=== PATIENT | female | born 1950 | race Caucasian/White ===

== ENCOUNTER 2020-10-30 11:37 | Outpatient (REF) | payer MEDICARE, SELFPAY ==
--- NOTE | 2020-10-30 | MM_ITS ---
EXAMINATION: MM SCREENING DIGITAL BREAST TOMOSYNTHESIS, BILATERAL CLINICAL INFORMATION: Screening. Asymptomatic. The lifetime risk of breast cancer based on the Tyrer-Cuzick Model is 6%. COMPARISON: Mammography: 08/05/2019, 08/02/2018, 07/31/2017 TECHNIQUE: Digital breast tomosynthesis is performed in both the craniocaudal and mediolateral oblique views along with computer-aided detection (CAD). Synthesized 2D images are generated from the tomosynthesis. FINDINGS: There are scattered areas of fibroglandular density (ACR BI-RADS breast composition Category b). There are no significant masses, abnormal calcifications, or other abnormalities. Parenchymal pattern is similar to prior studies. No significant changes. MM/MM tomosynthesis screening BI IMPRESSION: No mammographic evidence of malignancy. ASSESSMENT: BI-RADS 1: Negative RECOMMENDATION: Routine annual mammography screening. This patient's information was entered into a reminder system with a target due date for their next mammogram.
== END 2020-10-30 11:38 | disposition home or self-care (01) ==
LOC: HO.MAMMO 11:37
PROVIDERS: PCP Nurse Practitioner Family; Visit Provider Nurse Practitioner Family
DX: Z12.31 Encounter for screening mammogram for malignant neoplasm of breast (principal)
CPT/HCPCS: 77063; 77067

== ENCOUNTER 2021-11-03 09:40 | Outpatient (REF) | payer MEDICARE, SELFPAY ==
--- NOTE | ~2021-11-03 | MM_ITS ---
EXAMINATION: MM SCREENING DIGITAL BREAST TOMOSYNTHESIS, BILATERAL CLINICAL INFORMATION: Screening. Asymptomatic. The lifetime risk of breast cancer based on the Tyrer-Cuzick Model is 9%. COMPARISON: Mammography: 10/30/2020, 08/05/2019, 08/02/2018 TECHNIQUE: Digital breast tomosynthesis is performed in both the craniocaudal and mediolateral oblique views along with computer-aided detection (CAD). Synthesized 2D images are generated from the tomosynthesis. Additional left MLO view is provided. FINDINGS: There are scattered areas of fibroglandular density (ACR BI-RADS breast composition Category b). There are no significant masses, abnormal calcifications, or other abnormalities. Parenchymal pattern is similar to prior studies. There is no developing density or architectural abnormality. The axilla and skin contours are unremarkable. No significant changes. MM/MM tomosynthesis screening BI IMPRESSION: No mammographic evidence of malignancy. ASSESSMENT: BI-RADS 1: Negative RECOMMENDATION: Routine annual mammography screening. This patient's information was entered into a reminder system with a target due date for their next mammogram.
== END 2021-11-03 09:41 | disposition home or self-care (01) ==
LOC: HO.MAMMO 09:40
PROVIDERS: PCP Nurse Practitioner Family; Visit Provider Nurse Practitioner Family
DX: Z12.31 Encounter for screening mammogram for malignant neoplasm of breast (principal)
CPT/HCPCS: 77063; 77067

== ENCOUNTER 2022-11-05 09:45 | Outpatient (REF) | payer MEDICARE, SELFPAY ==
--- NOTE | ~2022-11-05 | MM_ITS ---
EXAMINATION: MM SCREENING DIGITAL BREAST TOMOSYNTHESIS, BILATERAL CLINICAL INFORMATION: Screening. Asymptomatic. The lifetime risk of breast cancer based on the Tyrer-Cuzick Model is 7.5%. COMPARISON: Mammography: November 03, 2021 and studies dating back to July 27, 2016 TECHNIQUE: Digital breast tomosynthesis is performed in both the craniocaudal and mediolateral oblique views along with computer-aided detection (CAD). Synthesized 2D images are generated from the tomosynthesis. FINDINGS: There are scattered areas of fibroglandular density (ACR BI-RADS breast composition Category b). There are no significant masses, abnormal calcifications, or other abnormalities. MM/MM tomosynthesis screening BI IMPRESSION: No significant changes from prior exam. ASSESSMENT: BI-RADS 1: Negative RECOMMENDATION: Routine annual mammography screening. This patient's information was entered into a reminder system with a target due date for their next mammogram.
== END 2022-11-05 09:46 | disposition home or self-care (01) ==
LOC: HO.MAMMO 09:45
PROVIDERS: Visit Provider Nurse Practitioner Family
DX: Z12.31 Encounter for screening mammogram for malignant neoplasm of breast (principal)
CPT/HCPCS: 77063; 77067

== ENCOUNTER 2023-01-27 05:51 | Emergency (ER) | payer MEDICARE, SELFPAY ==
--- NOTE | ~2023-01-27 | CT_ITS ---
EXAMINATION: CT CERVICAL SPINE WITHOUT CONTRAST CLINICAL INFORMATION: Neck pain COMPARISON: None available. TECHNIQUE: Axial images through the cervical spine without contrast. Sagittal and coronal reconstructions on the technologist workstation were performed. This CT examination was performed using dose optimization techniques as appropriate, variously including the following: *Automated exposure control *Adjustment of mA and/or kV according to patient size (this includes techniques or standardized protocols for targeted exams where dose is matched to indication/reason for exam; i.e. extremities or head) *Use of iterative reconstruction technique DLP: 321 mGy-cm FINDINGS: Bone alignment is normal. No fracture or dislocation. There is degenerative spondylosis from C3 through C4 to C6-C7. There is degenerative disc disease from C4-C5 to C6-C7 greatest at C5-C6. There are degenerative changes at the C1 dens articulation. At C2-C3 there is no disc herniation protrusion or bulge. At C3-C4 there is no disc herniation protrusion or bulge. At C4-C5 there is broad-based diffuse disc bulge. There is mild right neuroforaminal narrowing from disc bulge and bony osteophyte. At C5-C6 there is diffuse disc bulge. No disc herniation. There is moderate to severe secondary spinal stenosis and bilateral neuroforaminal narrowing from disc and bony osteophyte. At C6-C7 there is diffuse disc bulge. There is moderate secondary spinal stenosis and neuroforaminal narrowing from disc and bony osteophyte. C7-T1 there is no disc herniation protrusion or bulge. Prevertebral soft tissues are normal. There is bilateral carotid calcification, left greater than right. There is diffuse shotty cervical lymphadenopathy. There are mild emphysematous changes at the lung apices. CT/CT cervical spine wo IV con IMPRESSION: Multilevel degenerative changes greatest at C5-C6 and C6-C7 Fleischner guidelines were followed.
[2023-01-27 05:52] VITALS: BP 153/87; PULSE 110; RESP 18; TEMP 36.9; O2SAT 100; BMI 24.9
--- NOTE | 2023-01-27 06:40 | ED_ITS ---
HPI - Neck Pain/Injury General Chief Complaint: Neck Pain/Injury Stated Complaint: Stiff Neck Time Seen by Provider: 01/27/23 05:58 History of Present Illness HPI Narrative: Patient is 72 years old with a history of torticollis in the past. Presented today with having neck pain. The neck pain happened spontaneously. It is not associated with any change in breathing no change in voice. No sore throat. It is not associated with any focal weakness in the arms or legs. The pain is made worse with movement. Patient is from home. No fever no chills. No change with bright light or voice. No coughing or congestion. Related Data Allergies Allergy/AdvReac Type Severity Reaction Status Date / Time No Known Allergies Allergy Verified 01/27/23 06:07 Review of Systems Review of Systems: Positive neck pain PMFSH Past Medical History Attestation statement: The following information was validated with the patient. Social History Social History Alcohol intake: current Alcohol intake frequency: 3 or more drinks per day Alcohol type: beer Smoked in Last 30 Days: No Substance Use Type: Marijuana Substance Use Frequency: Occasionally Last Used Substance: Days (ago) Advance Directives: No Advance Directives Information Provided: Yes Physical Exam Vital Signs: Vital Signs: Last Vital Signs Temp 98.5 F 01/27/23 05:52 Pulse 110 H 01/27/23 05:52 Resp 18 01/27/23 05:52 BP 153/87 H 01/27/23 05:52 Pulse Ox 100 01/27/23 05:52 O2 Del Method Room Air 01/27/23 05:52 BMI result Body Mass Index 24.9 Appearance: Alert. Oriented X3. No acute distress. Eyes: Pupils equal, round and reactive to light. ENT: Pharynx normal. Neck: Normal inspection. Positive pain on movement of neck. Positive pain in the paraspinal muscle bilaterally No lymph nodes noted. No crepitus CVS: Normal heart rate and rhythm. Pulses normal. Normal S1 and S2 Respiratory: No respiratory distress. Breath sounds normal. No Wheezing. No rales Abdomen: Soft and nontender. No rigidity. No distention. good BS x4 Skin: Skin warm and dry. Normal skin color. Normal skin turgor. Extremities: No lower extremity edema. Neurovascular intact to all extremities. No Lacerations. No Rash Neuro: Oriented X 3. No motor deficit. No sensory deficit. Moving all extermities. No slurred speech Medical Decision Making Medical Decision Making MDM Narrative: Patient has symptoms consistent with torticollis. Pain is worse with movement. There is no change in voice. There is no change in breathing. Patient denies any trauma. Will check patient's labs and give NSAIDs. Will go ahead and give stronger pain medication for now for symptomatic control. A CT scan of the C- spine was ordered given patient's age. She is currently in stable condition. Independent Historian Family External Record Review External record reviewed: Inpatient record Discharge Plan Discharge Clinical Impression: Torticollis Patient Disposition: Still a Patient
[2023-01-27] MEDS: oxyCODONE HCl Immed Release 5 MG TABLET PO (06:58)
[2023-01-27 07:13] VITALS: BP 178/93; PULSE 99; RESP 18; TEMP 37.1; O2SAT 97
[2023-01-27 07:15] LABS: MANUAL DIFF FLAG NO
[2023-01-27 07:18] LABS: Basophils Absolute Auto 0.1 X10*3/uL (0.0-0.2); Basophils Percent Auto 0.9 % (0-2); Eosinophils Absolute Auto 0.4 X10*3/uL (0.0-0.4); Eosinophils Percent Auto 2.8 % (0-4); Hematocrit 41.9 % (37.0-47.0); Hemoglobin 14.1 g/dl (12.0-16.0); Imm Gran Abs Auto 0.32 X10*3/uL (0.00-0.03); Imm Gran Pct Auto 2.3 % (0.0-0.4); Lymphocytes Absolute Auto 2.4 X10*3/uL (1.2-4.9); Lymphocytes Percent Auto 17.3 % (20-40); Mean Corpuscular HGB Conc 33.7 g/dl (31.0-35.0); Mean Corpuscular Hemoglobin 31.9 pg (27.0-33.0); Mean Corpuscular Volume 94.8 fL (80.0-98.0); Mean Platelet Volume 9.6 fL (9.4-12.3); Monocytes Absolute Auto 1.2 X10*3/uL (0.1-1.2); Monocytes Percent Auto 8.8 % (2-11); Neutrophils Absolute Auto 9.3 x10*3/uL (2.0-8.3); Neutrophils Percent Auto 67.9 % (45-73); Platelet Count 314 X10*3/uL (160-400); Red Blood Count 4.42 X10*6/uL (4.20-5.50); Red Cell Distribution Width 11.7 % (11.0-16.0); White Blood Count 13.7 X10*3/uL (4.8-10.8)
[2023-01-27 07:33] LABS: Anion Gap 17 (12-20); Blood Urea Nitrogen 12 mg/dL (9-16); Calcium 9.4 mg/dL (8.4-10.2); Carbon Dioxide 26 mmol/L (22-29); Chloride 104 mmol/L (96-108); Creatinine Clr Calc Pharmacy 69.8; Estimated Glomerular Filt Rate > 60; Glucose Random 113 mg/dL (60-115); Potassium 4.9 mmol/L (3.3-5.1); Sodium 142 mmol/L (135-145)
--- NOTE | 2023-01-27 07:38 | PC.NURSE ---
assumed care of this pt at 0700. pt sitting in chair, sts that she is unable to lay in bed due to her neck stiffness. she is complaining of 10/10 pain. was medicated per mar by previous RN before shift change. rr even/unlabored. vss. wctm
== END 2023-01-27 08:20 | disposition home or self-care (01) ==
PROVIDERS: Emergency Medicine Emergency Medical Services; Emergency Provider Emergency Medicine
DX: M43.6 Torticollis (principal); R51.9 Headache, unspecified; M54.2 Cervicalgia; Z79.899 Other long term (current) drug therapy
CPT/HCPCS: 36415; 72125; 80048; 85025; 99284

== ENCOUNTER 2023-01-31 08:15 | Emergency (ER) | payer MEDICARE, SELFPAY ==
--- NOTE | ~2023-01-31 | XR_ITS ---
EXAMINATION: XR CHEST CLINICAL INFORMATION: Chest pain COMPARISON: None available. TECHNIQUE: Frontal view of the chest was obtained. FINDINGS: Cardiac silhouette is normal in size. Atherosclerotic disease of the aortic arch. There is no lobar consolidation. No pleural effusion or pneumothorax. No gross osseous abnormality. XR/XR chest 1V IMPRESSION: No acute pulmonary pathology.
--- NOTE | 2023-01-31 08:19 | ECG_ITS ---
Test Reason : CHEST PAIN Blood Pressure : / mmHG Vent. Rate : 107 BPM Atrial Rate : 107 BPM P-R Int : 148 ms QRS Dur : 072 ms QT Int : 330 ms P-R-T Axes : 064 000 010 degrees QTc Int : 440 ms Sinus tachycardia Minimal voltage criteria for LVH, may be normal variant ( R in aVL ) Borderline ECG No previous ECGs available Referred By: Generic ED Physician Electronically Signed By:LAUREL REYES MD
[2023-01-31 08:31] VITALS: BP 153/93; PULSE 120; RESP 16; TEMP 37.2; O2SAT 98; BMI 24.7
--- NOTE | 2023-01-31 09:04 | ED.NECK ---
HPI - Neck Pain/Injury General Chief Complaint: Neck Pain/Injury Stated Complaint: neck pain/ chest pain Time Seen by Provider: 01/31/23 08:40 Source: patient Mode of arrival: ambulatory Limitations: no limitations History of Present Illness HPI Narrative: 72-year-old female came in with neck pain radiating down to the left arm for 4 days, patient was seen and evaluated in the emergency department 4 days ago was diagnosed with torticollis, patient had CT of the cervical spine which showed multilevel degenerative change at C5-C6 and C6-C7. Patient declined any fall or trauma to the neck. Related Data Previous Rx's Medication Instructions Recorded cyclobenzaprine 10 mg tablet 10 mg PO TID PRN muscle spasm #14 01/27/23 tabs oxycodone 5 mg tablet 5 mg PO TID PRN pain #10 tabs 01/27/23 oxycodone 5 mg tablet 5 mg PO Q8H PRN pain #20 tabs 01/31/23 Allergies Allergy/AdvReac Type Severity Reaction Status Date / Time No Known Allergies Allergy Verified 01/27/23 06:07 Review of Systems Review of Systems: All other systems are reviewed and are negative Constitutional: Reports as per HPI and Reports no additional constitutional complaints Eyes: Reports as per HPI and Reports no additional eye complaints Reports system reviewed and no additional complaints, except as documented Cardiovascular: Reports as per HPI and Reports no additional cardiovascular complaints Respiratory: Reports as per HPI and Reports no additional respiratory complaints Gastrointestinal: Reports as per HPI and Reports no additional gastrointestinal complaints Genitourinary: Reports no additional female genitourinary complaints Musculoskeletal: Reports no additional musculoskeletal complaints Skin/Breast: Reports system reviewed and no additional complaints, except as docu Psychiatric: Reports no additional psychiatric complaints Endocrine: Reports no additional endocrine complaints Hematologic/Lymphatic: Reports no additional hematologic/lymphatic complaints Allergic/Immunologic: Reports no additional allergic/immunologic complaints Reports system reviewed and no additional complaints, except as documented and Reports Abnormal speech present ON LICENSE OF [facility] Social History Social History Alcohol intake: current Alcohol intake frequency: 3 or more drinks per day Alcohol type: beer Substance Use Type: Marijuana Advance Directives: Yes Advance Directives Information Provided: Yes Advance Directives on File: No Physical Exam Vital Signs: Vital Signs: Last Vital Signs Temp 98.9 F 01/31/23 08:31 Pulse 120 H 04/30/23 08:31 Resp 16 01/31/23 08:31 BP 153/93 H 01/31/23 08:31 Pulse Ox 98 01/31/23 08:31 O2 Del Method Room Air 01/31/23 08:31 BMI result Body Mass Index 24.7 Vital signs have been reviewed as appeared to be correct. Blood pressure elevated. Heart rate elevated. Respiration rate normal. Temperature normal. Oxygen saturation normal. Appearance: Alert. Oriented X3. No acute distress. Head: Normal external exam. Normocephalic. Atraumatic. No Kessler signs noted. No raccoon eyes noted Eyes: PERRLA. EOMI. Conjunctiva and sclera normal. Eyelids normal. ENT: TM's Normal. Pharynx normal. Uvula midline. Moist mucous membranes. No trismus noted. No drooling noted. No muffled voice noted. Neck: Normal inspection. Next staff due to stiffness of the paraspinous muscle, increased pain with moving left upper extremities raising above the head. CVS: Normal heart rate and rhythm. Heart sound normal. No murmurs noted. Pulses normal throughout. Respiratory: No respiratory distress. Painless inspiration. Breath sounds normal. No wheezes/rales/rhonchi noted. Chest nontender. No accessory muscle usage noted or decreased air movement noted. Abdomen: Soft and nontender. Bowel sounds normal in all 4 quadrants. No distention noted. No organomegaly noted. No visible injury noted. Back: No CVA tenderness. Full range of motion noted. Skin: Skin warm and dry. Normal skin color. Normal skin turgor. No rashes/lesions/lacerations noted. Extremities: No lower extremity edema. Extremities exhibit normal range of motion. Extremities nontender. Neuro: Oriented X 3. Cranial nerve exam: II-XII are grossly intact No motor deficit. No sensory deficit. Reflexes normal. Course Course Course Narrative: A 72-year-old female with neck pain for 1 week, no fever, no photophobia, no concern of meningitis with no wbc's. CT of the cervical spine performed last week in ED showed degenerative disease and osteoarthritis, patient received 1 mg of morphine in the emergency department with significant relief of her symptoms, will consider oxycodone for pain control and follow-up with PCP who already recommended to refer the patient [facility]. Unremarkable labs for chest pain. Medications Administered Discontinued Medications Generic Name Dose Route Start Last Admin Trade Name Amisha PRN Reason Stop Dose Admin Morphine Sulfate 2 mg 01/31/23 09:00 01/31/23 09:36 Morphine Sulfate 2 Mg/Ml Cartridge IVPUSH 01/31/23 09:01 2 mg ONCE ONE Administration Protocol Medical Decision Making Differential Diagnosis Differential Diagnoses: The differential diagnosis associated with the presentation includes (Cervical radiculopathy, osteoarthritis, ACS, pneumonia, pneumothorax.) Lab Data MDM Lab Attestation statement: I reviewed the patient's lab results. 01/31/23 09:19 01/31/23 09:19 Labs: Lab Results 01/31/23 01/31/23 01/31/23 Range/Units 09:19 09:19 09:19 WBC 16.4 H (4.8-10.8) X10*3/uL RBC 4.10 L (4.20-5.50) X10*6/uL Hgb 13.1 (12.0-16.0) g/dl Hct 39.3 (37.0-47.0) % MCV 95.9 (80.0-98.0) fL MCH 32.0 (27.0-33.0) pg MCHC 33.3 (31.0-35.0) g/dl RDW 11.9 (11.0-16.0) % Plt Count 364 (160-400) X10*3/uL MPV 9.7 (9.4-12.3) fL Immature Gran % (Auto) 1.0 H (0.0-0.4) % Neut % (Auto) 77.2 H (45-73) % Lymph % (Auto) 13.2 L (20-40) % [place] % (Auto) 6.2 (2-11) % Eos % (Auto) 1.7 (0-4) % Baso % (Auto) 0.7 (0-2) % Lymph # (Auto) 2.2 (1.2-4.9) X10*3/uL [place] # (Auto) 1.0 (0.1-1.2) X10*3/uL Eos # (Auto) 0.3 (0.0-0.4) X10*3/uL Baso # (Auto) 0.1 (0.0-0.2) X10*3/uL Abs Immat Gran (auto) 0.17 H (0.00-0.03) X10*3/uL Absolute Neuts (auto) 12.6 H (2.0-8.3) x10*3/uL Absolute Nucleated RBC 0.000 (0.0-0.012) X10*3/uL Nucleated RBC % (auto) 0.0 (0.0-0.2) /100WBC Sodium 139 (135-145) mmol/L Potassium 4.2 (3.3-5.1) mmol/L Chloride 101 (96-108) mmol/L Carbon Dioxide 25 (22-29) mmol/L Anion Gap 17 (12-20) BUN 10 (9-16) mg/dL Creatinine 0.83 (0.5-1.4) mg/dL Estim Creat Clear Calc 53.5 Estimated GFR > 60 Random Glucose 103 (60-115) mg/dL Calcium 9.3 (8.4-10.2) mg/dL Total Bilirubin 0.5 (0.0-1.0) mg/dL Direct Bilirubin 0.2 (0.0-0.5) mg/dL AST 20 (5-31) U/L ALT 24 (0-31) U/L Alkaline Phosphatase 95 (39-117) U/L Troponin I High Sens 2.8 (<3.5-17.0) ng/L B-Natriuretic Peptide (<100) pg/mL Total Protein 7.5 (6.5-8.0) g/dL Albumin 4.3 (3.5-5.0) g/dL Lipase 15 (8-78) U/L Influenza Type A (PCR) (Negative) Influenza Type B (PCR) (Negative) RSV RNA Qual (PCR) (Negative) SARS-CoV-2 RNA (RT-PCR) (Negative) 01/31/23 01/31/23 Range/Units 09:19 09:19 WBC (4.8-10.8) X10*3/uL RBC (4.20-5.50) X10*6/uL Hgb (12.0-16.0) g/dl Hct (37.0-47.0) % MCV (80.0-98.0) fL MCH (27.0-33.0) pg MCHC (31.0-35.0) g/dl RDW (11.0-16.0) % Plt Count (160-400) X10*3/uL MPV (9.4-12.3) fL Immature Gran % (Auto) (0.0-0.4) % Neut % (Auto) (45-73) % Lymph % (Auto) (20-40) % [place] % (Auto) (2-11) % Eos % (Auto) (0-4) % Baso % (Auto) (0-2) % Lymph # (Auto) (1.2-4.9) X10*3/uL [place] # (Auto) (0.1-1.2) X10*3/uL Eos # (Auto) (0.0-0.4) X10*3/uL Baso # (Auto) (0.0-0.2) X10*3/uL Abs Immat Gran (auto) (0.00-0.03) X10*3/uL Absolute Neuts (auto) (2.0-8.3) x10*3/uL Absolute Nucleated RBC (0.0-0.012) X10*3/uL Nucleated RBC % (auto) (0.0-0.2) /100WBC Sodium (135-145) mmol/L Potassium (3.3-5.1) mmol/L Chloride (96-108) mmol/L Carbon Dioxide (22-29) mmol/L Anion Gap (12-20) BUN (9-16) mg/dL Creatinine (0.5-1.4) mg/dL Estim Creat Clear Calc Estimated GFR Random Glucose (60-115) mg/dL Calcium (8.4-10.2) mg/dL Total Bilirubin (0.0-1.0) mg/dL Direct Bilirubin (0.0-0.5) mg/dL AST (5-31) U/L ALT (0-31) U/L Alkaline Phosphatase (39-117) U/L Troponin I High Sens (<3.5-17.0) ng/L B-Natriuretic Peptide < 10 (<100) pg/mL Total Protein (6.5-8.0) g/dL Albumin (3.5-5.0) g/dL Lipase (8-78) U/L Influenza Type A (PCR) NEGATIVE (Negative) Influenza Type B (PCR) NEGATIVE (Negative) RSV RNA Qual (PCR) NEGATIVE (Negative) SARS-CoV-2 RNA (RT-PCR) NEGATIVE (Negative) Independent Interpretation I performed an independent interpretation of an: Plain X-Ray (Chest: No acute pulmonary pathology.) Radiology Impression Discussion of test interpretation with radiology: I have reviewed the radiologist's reading. Discharge Plan Discharge Clinical Impression: Osteoarthritis cervical spine Patient Disposition: Home, Self-Care Instructions: Osteoarthritis (ED) Prescriptions: New oxycodone 5 mg tablet 5 mg PO Q8H PRN (Reason: pain) Qty: 20 0RF Rx Instructions: Partial Fill upon patient request. No Action oxycodone 5 mg tablet 5 mg PO TID PRN (Reason: pain) Qty: 10 0RF Rx Instructions: Partial Fill upon patient request. cyclobenzaprine 10 mg tablet 10 mg PO TID PRN (Reason: muscle spasm) Qty: 14 0RF Referrals: April Cook NP [Primary Care Provider] -
[2023-01-31 09:25] LABS: MANUAL DIFF FLAG NO
[2023-01-31 09:30] LABS: Basophils Absolute Auto 0.1 X10*3/uL (0.0-0.2); Basophils Percent Auto 0.7 % (0-2); Eosinophils Absolute Auto 0.3 X10*3/uL (0.0-0.4); Eosinophils Percent Auto 1.7 % (0-4); Hematocrit 39.3 % (37.0-47.0); Hemoglobin 13.1 g/dl (12.0-16.0); Imm Gran Abs Auto 0.17 X10*3/uL (0.00-0.03); Lymphocytes Absolute Auto 2.2 X10*3/uL (1.2-4.9); Lymphocytes Percent Auto 13.2 % (20-40); Mean Corpuscular HGB Conc 33.3 g/dl (31.0-35.0); Mean Corpuscular Volume 95.9 fL (80.0-98.0); Mean Platelet Volume 9.7 fL (9.4-12.3); Monocytes Percent Auto 6.2 % (2-11); Neutrophils Absolute Auto 12.6 x10*3/uL (2.0-8.3); Neutrophils Percent Auto 77.2 % (45-73); Platelet Count 364 X10*3/uL (160-400); Red Cell Distribution Width 11.9 % (11.0-16.0); White Blood Count 16.4 X10*3/uL (4.8-10.8)
[2023-01-31] MEDS: Morphine Sulfate 2 MG/ML CARTRIDGE IVPUSH (09:36)
[2023-01-31 09:47] LABS: Alanine Aminotransferase 24 U/L (0-31); Albumin Level 4.3 g/dL (3.5-5.0); Alkaline Phosphatase 95 U/L (39-117); Anion Gap 17 (12-20); Aspartate Amino Transferase 20 U/L (5-31); Bilirubin Direct 0.2 mg/dL (0.0-0.5); Bilirubin Total 0.5 mg/dL (0.0-1.0); Blood Urea Nitrogen 10 mg/dL (9-16); Calcium 9.3 mg/dL (8.4-10.2); Carbon Dioxide 25 mmol/L (22-29); Chloride 101 mmol/L (96-108); Creatinine Clr Calc Pharmacy 53.5; Estimated Glomerular Filt Rate > 60; Glucose Random 103 mg/dL (60-115); Lipase 15 U/L (8-78); Potassium 4.2 mmol/L (3.3-5.1); Sodium 139 mmol/L (135-145); Total Protein 7.5 g/dL (6.5-8.0)
[2023-01-31 09:52] LABS: B Type Natriuretic Peptide < 10 pg/mL (<100)
[2023-01-31 09:54] LABS: Troponin-I High Sensitivity 2.8 ng/L (<3.5-17.0)
[2023-01-31 10:14] LABS: Influenza A PCR NEGATIVE (Negative); Influenza B PCR NEGATIVE (Negative); Resp Syncy Virus RNA Qual PCR NEGATIVE (Negative); SARS COV2 PCR INHOUSE NEGATIVE (Negative)
== END 2023-01-31 12:02 | disposition home or self-care (01) ==
PROVIDERS: Emergency Provider Emergency Medicine; PCP Nurse Practitioner Family
DX: M47.812 Spondylosis without myelopathy or radiculopathy, cervical region (principal); R07.89 Other chest pain; R06.02 Shortness of breath; Z20.822 Contact with and (suspected) exposure to COVID-19; Z20.828 Contact with and (suspected) exposure to other viral communicable diseases; Z79.899 Other long term (current) drug therapy
CPT/HCPCS: 0241U; 36415; 71045; 80048; 80076; 83690; 83880; 84484; 85025; 93005; 96374; 99283; 99284; J2270

== ENCOUNTER 2023-05-04 09:19 | Emergency (ER) | payer MEDICARE, SELFPAY ==
--- NOTE | ~2023-05-04 | CT_ITS ---
CT ANGIOGRAM NECK WITH CONTRAST CT ANGIOGRAM BRAIN WITH CONTRAST CLINICAL INFORMATION: Acute vertigo with neck pain. COMPARISON: Cervical spine CT January 27, 2023. TECHNIQUE: Test bolus sequences followed by intravenous administration 70 mL of Omnipaque 350. Helical imaging was performed in the axial plane from the thoracic inlet to the skull vertex. Delayed postcontrast imaging of the head was also performed. The data was processed at the special procedures technologist workstation for generation of MIP sequences. Angled MIPs and volume rendered reformatted images were also generated at an offline 3D workstation under concurrent supervision. Stenoses are assessed in accordance with NASCET criteria unless otherwise indicated. This CT examination was performed using dose optimization techniques as appropriate, variously including the following: *Automated exposure control *Adjustment of mA and/or kV according to patient size (this includes techniques or standardized protocols for targeted exams where dose is matched to indication/reason for exam; i.e. extremities or head) *Use of iterative reconstruction technique FINDINGS: BRAIN: [There is no intracranial hemorrhage, hydrocephalus, extra-axial surface collection, midline shift, or other herniation pattern. Hernandez to white matter differentiation is diffusely maintained without evidence of an evolved acute territorial infarct. The basilar cisterns are preserved. No significant soft tissue abnormality. No acute osseous abnormality. Polypoid soft tissue partially opacifies the upper nasal cavities bilaterally including the anterior olfactory recesses. CERVICAL SOFT TISSUES AND LUNG APICES: There is centrilobular emphysema and there are blebs within the periphery of the lungs bilaterally. There is advanced multilevel cervical spondylosis. At C6-C7, there is artifact versus a large disc herniation resulting in significant mass effect on the cord that would be better assessed with a dedicated cervical spine MRI if there is cervical myelopathy clinically. Disc osteophyte also likely flattens the ventral cord and results in effacement of the right greater than left axillary recess at C5-C6 where there is severe right-sided foraminal stenosis. NECK CTA: [There is a classic 3 vessel configuration of the aortic arch. Proximal arch vessels are non-stenotic. The vertebral arteries are codominant. No significant ostial stenosis is visualized on either side. Both vertebral arteries are widely patent throughout their extracranial cervical course. Extensive lipid rich atherosclerotic plaque results in a 70% stenosis of the mid left common carotid artery. Atherosclerotic calcification involving the left greater than right carotid bifurcation without significant stenosis involving the proximal internal carotid arteries on either side. BRAIN CTA: [There is normal opacification of major intracranial arteries. No focal flow-limiting stenosis nor discrete proximal large artery occlusion. There is a 2.5 mm saccular aneurysm along the undersurface of the right paraclinoid ICA segment and there is a 2 mm saccular aneurysm projecting laterally from the ophthalmic segment of the right internal carotid artery. There is a 4 mm saccular aneurysm projecting posteromedially from the undersurface of the left paraclinoid ICA segment. Timing of the contrast bolus allows assessment of the major dural venous sinuses, which all opacify normally] CT/CT angio head neck IMPRESSION: - No acute intracranial findings. No acute arterial occlusions intracranially. - There is a 2.5 mm saccular aneurysm along the undersurface of the right paraclinoid ICA segment and there is a 2 mm saccular aneurysm projecting laterally from the ophthalmic segment of the right internal carotid artery. There is a 4 mm saccular aneurysm projecting posteromedially from the undersurface of the left paraclinoid ICA segment. - Extensive lipid rich atherosclerotic plaque results in a 70% stenosis of the mid left common carotid artery. Atherosclerotic calcification involving the left greater than right carotid bifurcation without significant stenosis involving the proximal internal carotid arteries on either side. - At C6-C7, there is artifact versus a large disc herniation resulting in significant mass effect on the cord that would be better assessed with a dedicated cervical spine MRI if there is cervical myelopathy clinically. Disc osteophyte also likely flattens the ventral cord and results in effacement of the right greater than left axillary recess at C5-C6 where there is severe right-sided foraminal stenosis.
[2023-05-04 09:23] VITALS: BP 190/82; PULSE 98; O2SAT 98
--- NOTE | 2023-05-04 09:24 | ECG_ITS ---
Test Reason : dizziness Blood Pressure : / mmHG Vent. Rate : 094 BPM Atrial Rate : 094 BPM P-R Int : 156 ms QRS Dur : 084 ms QT Int : 372 ms P-R-T Axes : 065 010 039 degrees QTc Int : 465 ms Normal sinus rhythm mild Nonspecific ST and T wave abnormality When compared with ECG of 31-JAN-2023 08:57, No significant change was found Referred By: Generic ED Physician Electronically Signed By:JOSE MIGUEL SHEIKH
[2023-05-04 09:25] VITALS: BP 176/84; PULSE 88; RESP 13; TEMP 37.1; O2SAT 99; BMI 25.2
[2023-05-04 09:37] VITALS: BP 176/84; PULSE 91; RESP 12; TEMP 37.1; O2SAT 99
[2023-05-04 09:41] LABS: MANUAL DIFF FLAG NO
--- NOTE | 2023-05-04 09:54 | ED.DIZZY ---
HPI - Dizziness General Chief Complaint: Dizziness Stated Complaint: DIZZY,NO VOMITING TODAY PER EMS Time Seen by Provider: 05/04/23 09:32 Source: patient and family Mode of arrival: ambulatory Limitations: no limitations History of Present Illness HPI Narrative: 72-year-old female presents with dizziness. Dizziness is described as sensation of movement. This started yesterday. Been progressively getting worse. The onset was sudden in nature. There is associated nausea no vomiting. She denies any headache, vision loss, vision changes. She denies any chest pain or shortness of breath care. She denies any lightheadedness or palpitations. Patient denies any ringing in her ears or ear pain. Patient describes her symptoms as severe. Relieving features include staying still and closing eyes. Symptoms are worsened by movement. Patient has never had this before MD elicited complaint: dizziness and vertigo Onset (ago): day(s) (1) Timing: sudden onset Severity: severe Description: sense of movement, room spinning and off-balance History of similar symptoms: No Exacerbating factors: movement/ambulation, change in body position and keeping eyes open Relieving factors: remaining still and keeping eyes closed Associated symptoms: nausea Related Data Previous Rx's Medication Instructions Recorded cyclobenzaprine 10 mg tablet 10 mg PO TID PRN muscle spasm #14 01/27/23 tabs oxycodone 5 mg tablet 5 mg PO TID PRN pain #10 tabs 01/27/23 oxycodone 5 mg tablet 5 mg PO Q8H PRN pain #20 tabs 01/31/23 diazepam 2 mg tablet (Valium) 2 mg PO BID PRN dizziness or 05/04/23 vertigo #10 tabs meclizine 25 mg tablet 25 mg PO BID PRN dizziness #14 tabs 05/04/23 ondansetron 4 mg disintegrating 4 mg PO Q8H PRN nausea and 05/04/23 tablet vomiting #14 tabs Allergies Allergy/AdvReac Type Severity Reaction Status Date / Time No Known Allergies Allergy Verified 01/27/23 06:07 Review of Systems Review of Systems: CONSTITUTIONAL: Denies weight loss, fever and chills. HEENT: Denies changes in vision and hearing. RESPIRATORY: Denies SOB and cough. CV: Denies palpitations no CP. GI: Denies abdominal pain, + nausea, no vomiting and diarrhea. : Denies dysuria and urinary frequency. MSK: Denies myalgia and joint pain. SKIN: Denies rash and pruritus. NEUROLOGICAL: Denies headache and syncope. PSYCHIATRIC: Denies recent changes in mood. Denies anxiety and depression. All other ROS are negative unless in HPI [facility] Social History Social History Alcohol intake: current Alcohol intake frequency: 3 or more drinks per day Alcohol type: beer Substance Use Type: Marijuana Advance Directives: Yes Advance Directives Information Provided: Yes Advance Directives on File: No Physical Exam Vital Signs: Vital Signs: Last Vital Signs Temp 98.6 F 05/04/23 13:45 Pulse 81 05/04/23 13:45 Resp 16 05/04/23 13:45 BP 146/73 H 05/04/23 13:45 Pulse Ox 99 05/04/23 09:37 O2 Del Method Room Air 05/04/23 13:45 BMI result Body Mass Index 25.2 GEN: Well developed, no acute distress, alert, oriented HEENT: Normocephalic, atraumatic, normal external ears, nose appears normal, no oropharyngeal edema or exudates, TM clear Eyes: Normal to appearance Neck: Supple, no lymphadenopathy Respiratory: Talks in complete sentences, no respiratory distress, clear to auscultation bilaterally Cardiovascular: Regular rate and rhythm, no murmurs rubs or gallops Abdomen: Soft, nontender, nondistended, no guarding, no rebound Back: No CVA tenderness Extremities: No clubbing cyanosis or edema Neurologic: No focal neurologic deficits, cranial nerves 2-12 intact, strength is 5/5 bilaterally Skin: No rash Course Course Course Narrative: The workup is complete at this time. Patient has no evidence of carotid artery dissection or vertebral dissection. That was my primary concern upon my initial evaluation with neck pain and is. There are multiple abnormal findings under imaging studies which I went over each every 1 of them with the patient and her son. First of all, we did discuss the aneurysms that were noted on her CTA. There 3 noted ranging in size from 2 mm to 4 mm. I will try to find a referral to a endovascular neurosurgeon. Additionally, there is atherosclerotic carotid artery disease. Patient is already on aspirin therapy and statin therapy. This appears to be in appropriate regimen especially given 70% stenosis. Will refer the patient to a vascular specialist as well. Patient does have a and a equipment application specialist that she sees and she has already had an MRI regarding the C6-C7 findings of spinal cord impingement with a protrusion of the disc. At this point, I will take prescribed medications for vertigo. She can return for any worsening or concerning symptoms. All questions were addressed and answered. Medications Administered Discontinued Medications Generic Name Dose Route Start Last Admin Trade Name Amisha PRN Reason Stop Dose Admin Iohexol 100 ml 05/04/23 10:51 05/04/23 10:51 Iohexol 350 Mg/Ml 100 Ml Infus..Btl IV 05/04/23 10:52 70 ml ONCE ONE Administration Meclizine HCl 25 mg 05/04/23 09:42 05/04/23 10:04 Meclizine Hcl 25 Mg Tablet PO 05/04/23 09:43 25 mg ONCE ONE Administration Ondansetron HCl 4 mg 05/04/23 09:42 05/04/23 10:04 Ondansetron Hcl 4 Mg/2 Ml Vial IVPUSH 05/04/23 09:43 4 mg ONCE ONE Administration Medical Decision Making Medical Decision Making [facility] Narrative: Patient presents with vertigo, who sensation of movement and spinning. BPPV, Meniere's disease, vestibular neuritis, labyrinthitis, central etiology, otitis, lightheadedness, dizziness, near syncope, arrhythmia, anemia, electrolyte abnormality Plan CT head and neck Tx: meclizine, zofran Differential Diagnosis Differential Diagnoses: The differential diagnosis associated with the presentation includes (See above) Admission/Observation Consideration of admission/observation: Escalation of care including admission/observation considered Lab Data [facility] Lab Attestation statement: I reviewed the patient's lab results. 05/04/23 09:38 05/04/23 09:38 Labs: Lab Results 05/04/23 05/04/23 Range/Units 09:38 09:38 WBC 7.3 (4.8-10.8) X10*3/uL RBC 4.80 (4.20-5.50) X10*6/uL Hgb 15.2 (12.0-16.0) g/dl Hct 45.1 (37.0-47.0) % MCV 94.0 (80.0-98.0) fL MCH 31.7 (27.0-33.0) pg MCHC 33.7 (31.0-35.0) g/dl RDW 12.4 (11.0-16.0) % Plt Count 327 (160-400) X10*3/uL MPV 9.6 (9.4-12.3) fL Immature Gran % (Auto) 0.4 (0.0-0.4) % Neut % (Auto) 57.5 (45-73) % Lymph % (Auto) 31.3 (20-40) % Kay % (Auto) 6.5 (2-11) % Eos % (Auto) 3.3 (0-4) % Baso % (Auto) 1.0 (0-2) % Lymph # (Auto) 2.3 (1.2-4.9) X10*3/uL Kay # (Auto) 0.5 (0.1-1.2) X10*3/uL Eos # (Auto) 0.2 (0.0-0.4) X10*3/uL Baso # (Auto) 0.1 (0.0-0.2) X10*3/uL Abs Immat Gran (auto) 0.03 (0.00-0.03) X10*3/uL Absolute Neuts (auto) 4.2 (2.0-8.3) x10*3/uL Absolute Nucleated RBC 0.000 (0.0-0.012) X10*3/uL Nucleated RBC % (auto) 0.0 (0.0-0.2) /100WBC Sodium 142 (135-145) mmol/L Potassium 3.7 (3.3-5.1) mmol/L Chloride 105 (96-108) mmol/L Carbon Dioxide 23 (22-29) mmol/L Anion Gap 18 (12-20) BUN 14 (9-16) mg/dL Creatinine 0.78 (0.5-1.4) mg/dL Estim Creat Clear Calc 57.4 Estimated GFR > 60 Random Glucose 108 (60-115) mg/dL Calcium 10.0 D (8.4-10.2) mg/dL Total Bilirubin 0.6 (0.0-1.0) mg/dL AST 30 (5-31) U/L ALT 28 (0-31) U/L Alkaline Phosphatase 73 (39-117) U/L Total Protein 8.1 H (6.5-8.0) g/dL Albumin 4.5 (3.5-5.0) g/dL Independent Interpretation I performed an independent interpretation of an: EKG (Normal sinus rhythm heart rate 94, normal intervals, no acute ST elevations or depressions) and CT Scan Radiology Impression Discussion of test interpretation with radiology: I have reviewed the radiologist's reading. Independent Historian Clinical information obtained from an independent historian. History obtained from or confirmed by: Other (Son) Prescription Management I considered prescription management with: Other (Meclizine, Zofran) Critical Care Time Critical Care Time Critical Care Time: Yes Total Critical Care Time: 65 Attestation: Approximately 65 minutes of critical care time was spent on patient care, direct patient care, conversation with patient and son, consideration of a possibly life-threatening conditions such as carotid artery dissection or vertebral artery dissection given her neck pain and dizziness. Other forms of critical care time were spent on documentation, interpretation and medical data, medical management. These were all done outside of any medical procedures. Discharge Plan Discharge Clinical Impression: Vertigo, Elevated blood pressure reading, Aneurysm, cerebral, Spinal stenosis, Carotid atherosclerosis Patient Disposition: Home, Self-Care Instructions: Vertigo (ED), Hypertension (ED), Carotid Artery Disease (DC) Prescriptions: New meclizine 25 mg tablet 25 mg PO BID PRN (Reason: dizziness) Qty: 14 0RF ondansetron 4 mg tablet,disintegrating 4 mg PO Q8H PRN (Reason: nausea and vomiting) Qty: 14 0RF diazepam [Valium] 2 mg tablet 2 mg PO BID PRN (Reason: dizziness or vertigo) Qty: 10 0RF No Action oxycodone 5 mg tablet 5 mg PO TID PRN (Reason: pain) Qty: 10 0RF Rx Instructions: Partial Fill upon patient request. cyclobenzaprine 10 mg tablet 10 mg PO TID PRN (Reason: muscle spasm) Qty: 14 0RF oxycodone 5 mg tablet 5 mg PO Q8H PRN (Reason: pain) Qty: 20 0RF Rx Instructions: Partial Fill upon patient request. Referrals: April Cook NP [Primary Care Provider] - 2 days Tristan Angel MD [Physician] - (Endovascular) Keli Muñoz DO [Physician] - Adonay Walsh MD [Physician] - (Vascular)
[2023-05-04 10:01] LABS: Alanine Aminotransferase 28 U/L (0-31); Albumin Level 4.5 g/dL (3.5-5.0); Alkaline Phosphatase 73 U/L (39-117); Anion Gap 18 (12-20); Aspartate Amino Transferase 30 U/L (5-31); Bilirubin Total 0.6 mg/dL (0.0-1.0); Blood Urea Nitrogen 14 mg/dL (9-16); Carbon Dioxide 23 mmol/L (22-29); Chloride 105 mmol/L (96-108); Creatinine Clr Calc Pharmacy 57.4; Estimated Glomerular Filt Rate > 60; Glucose Random 108 mg/dL (60-115); Potassium 3.7 mmol/L (3.3-5.1); Sodium 142 mmol/L (135-145); Total Protein 8.1 g/dL (6.5-8.0)
[2023-05-04] MEDS: ondansetron HCL 4 MG/2 ML VIAL IVPUSH (10:04)
[2023-05-04] MEDS: Meclizine HCl 25 MG TABLET PO (10:04)
[2023-05-04 10:05] VITALS: BP 171/81; PULSE 85; RESP 18
[2023-05-04 10:09] LABS: Basophils Absolute Auto 0.1 X10*3/uL (0.0-0.2); Eosinophils Absolute Auto 0.2 X10*3/uL (0.0-0.4); Eosinophils Percent Auto 3.3 % (0-4); Hematocrit 45.1 % (37.0-47.0); Hemoglobin 15.2 g/dl (12.0-16.0); Imm Gran Abs Auto 0.03 X10*3/uL (0.00-0.03); Imm Gran Pct Auto 0.4 % (0.0-0.4); Lymphocytes Absolute Auto 2.3 X10*3/uL (1.2-4.9); Lymphocytes Percent Auto 31.3 % (20-40); Mean Corpuscular HGB Conc 33.7 g/dl (31.0-35.0); Mean Corpuscular Hemoglobin 31.7 pg (27.0-33.0); Mean Platelet Volume 9.6 fL (9.4-12.3); Monocytes Absolute Auto 0.5 X10*3/uL (0.1-1.2); Monocytes Percent Auto 6.5 % (2-11); Neutrophils Absolute Auto 4.2 x10*3/uL (2.0-8.3); Neutrophils Percent Auto 57.5 % (45-73); Platelet Count 327 X10*3/uL (160-400); Red Cell Distribution Width 12.4 % (11.0-16.0); White Blood Count 7.3 X10*3/uL (4.8-10.8)
[2023-05-04] MEDS: iohexoL 350 MG/ML 100 ML INFUS..BTL IV (10:51)
[2023-05-04 13:45] VITALS: BP 146/73; PULSE 81; RESP 16; TEMP 37
--- NOTE | 2023-05-04 14:13 | PC.NURSE ---
patient still states shes having the same level of dizziness and unsteady feel with ambulation.
[2023-05-04] MEDS: Metoclopramide HCl 10 MG/2 ML VIAL IVPUSH (14:52)
[2023-05-04 15:12] VITALS: BP 150/76; PULSE 89; RESP 18; TEMP 36.9; O2SAT 95
== END 2023-05-04 15:25 | disposition home or self-care (01) ==
PROVIDERS: Emergency Provider Emergency Medicine; PCP Nurse Practitioner Family
DX: R42 Dizziness and giddiness (principal); I67.1 Cerebral aneurysm, nonruptured; M48.02 Spinal stenosis, cervical region; R03.0 Elevated blood-pressure reading, without diagnosis of hypertension; F12.90 Cannabis use, unspecified, uncomplicated
CPT/HCPCS: 36415; 70496; 70498; 80053; 85025; 93005; 96374; 96375; 99284; J2405; J2765; Q9967

== ENCOUNTER → 2023-05-04 09:24 | Outpatient (BNV) | payer MEDICARE, SELFPAY | PROVIDERS: Emergency Provider Emergency Medicine; PCP Nurse Practitioner Family; Visit Provider Internal Medicine | DX: R94.31 Abnormal electrocardiogram [ECG] [EKG] (principal) | CPT/HCPCS: 93010 ==

== ENCOUNTER 2023-11-11 09:32 | Outpatient (REF) | payer MEDICARE, SELFPAY | END 2023-11-11 09:33 | disposition home or self-care (01) | LOC: HO.MAMMO 09:32 | PROVIDERS: PCP Nurse Practitioner Family; Visit Provider Nurse Practitioner Family | DX: Z12.31 Encounter for screening mammogram for malignant neoplasm of breast (principal) | CPT/HCPCS: 77063; 77067 ==

== ENCOUNTER → 2023-11-11 09:45 | Outpatient (BNV) | payer MEDICARE, SELFPAY | PROVIDERS: PCP Nurse Practitioner Family; Visit Provider Radiology Diagnostic Radiology | DX: Z12.31 Encounter for screening mammogram for malignant neoplasm of breast (principal) | CPT/HCPCS: 77063; 77067 ==

== ENCOUNTER 2024-11-21 10:07 | Outpatient (REF) | payer MEDICARE, SELFPAY | END 2024-11-21 10:08 | disposition home or self-care (01) | LOC: HO.MAMMO 10:07 | PROVIDERS: PCP Nurse Practitioner Family; Visit Provider Nurse Practitioner Family | DX: Z12.31 Encounter for screening mammogram for malignant neoplasm of breast (principal) | CPT/HCPCS: 77063; 77067 ==

== ENCOUNTER → 2024-11-21 10:15 | Outpatient (BNV) | payer MEDICARE, SELFPAY | PROVIDERS: PCP Nurse Practitioner Family; Visit Provider Internal Medicine | DX: Z12.31 Encounter for screening mammogram for malignant neoplasm of breast (principal) | CPT/HCPCS: 77063; 77067 ==